=== PATIENT | male | born 1950 | race Caucasian/White ===

== ENCOUNTER 2021-06-03 16:59 | Emergency (ER) | payer MEDICARE, BC ==
[2021-06-03 18:06] VITALS: BP 149/83; PULSE 99
[2021-06-03] MEDS: Sodium Chloride 0.9% 1,000 ML IV ONE (18:24)
[2021-06-03] MEDS: diphenhydrAMINE 50 MG Cap PO ONE (18:24)
[2021-06-03] MEDS: Levofloxacin/Dextrose 5%-Water 500 MG in Levofloxacin/Dextrose 5%-Water 100 ML IV ONE (18:24)
[2021-06-03] MEDS: diphenhydrAMINE 50 MG Cap ONE (18:34)
[2021-06-03] MEDS: Ondansetron 4 MG/2 ML SDV IVPUSH ONE (18:34)
[2021-06-03] MEDS: Ondansetron 4 MG/2 ML SDV ONE (18:35)
--- NOTE | 2021-06-03 19:33 | EDM.PDOC ---
ED HPI GENERAL MEDICAL PROBLEM - General Chief Complaint: Neuro Symptoms/Deficits Stated Complaint: WEAKNESS Time Seen by Provider: 06/03/21 17:10 - History of Present Illness INITIAL COMMENTS - FREE TEXT/NARRATIVE: Pt is here with his daughter with C/O of not feeling well. He had a colonoscopy today in [place], and woke up with a tingling sensation in his throat, and he couldn't swallow. He has also been coughing. He felt sick this morning when getting up with nausea and vomiting, but it seemed to pass. His daughter says he has been getting worse this afternoon. Throat Pain Score (Numeric/FACES): 3 - Related Data Allergies Allergy/AdvReac Type Severity Reaction Status Date / Time No Known Allergies Allergy Verified 06/03/21 17:52 Home Meds: Home Meds Glucosamine [Glucosamine Sulfate] 500 mg PO DAILY 12/15/14 [History] Losartan [Cozaar] 50 mg PO BID 09/02/18 [History] Vit C/E/Zn/Coppr/Lutein/Zeaxan [Preservision Areds 2 Softgel] 2 cap PO DAILY 09/02/18 [History] atorvaSTATin [Lipitor] 10 mg PO DAILY 09/02/18 [History] hydroCHLOROthiazide [Microzide] 12.5 mg PO DAILY 09/02/18 [History] Past Medical History Other HEENT History: tonsillectomy 38 yrs ago Cardiovascular History: Reports: High Cholesterol, Hypertension Gastrointestinal History: Reports: Colon Polyp Other Gastrointestinal History: past week lower abd pain Other Musculoskeletal History: right shoulder pain - Past Surgical History Other Musculoskeletal Surgeries/Procedures:: rt knee scoped 2007 Social & Family History - Family History Family Medical History: No Pertinent Family History - Tobacco Use Tobacco Use Status *Q: Never Tobacco User ED ROS GENERAL - Review of Systems Review Of Systems: Comprehensive ROS is negative, except as noted in HPI. Respiratory: Reports: Cough GI/Abdominal: Reports: Nausea ED EXAM, GENERAL - Physical Exam Exam: See Below Throat/Mouth: Other (mucous membranes are dry) Respiratory/Chest: Other (Lungs have scattered Rhonchi.) #1 Interpretation EKG Date: 06/03/21 Time: 18:00 Course - Vital Signs Last Recorded V/S: Last Vital Signs Temp 99.9 F 06/03/21 18:04 Pulse 99 06/03/21 18:04 Resp 16 06/03/21 18:04 BP 149/83 H 06/03/21 18:04 Pulse Ox 93 L 06/03/21 18:04 - Orders/Labs/Meds Orders: Active Orders 24 hr Category Date Time Status Chest 1V Frontal [CR] Stat Exams 06/03/21 17:17 Taken Levofloxacin/Dextrose 5%-Water [Levaquin in D5W 500 MG/ Med 06/03/21 18:09 Active 100 ML] 500 mg Levofloxacin/Dextrose 5%-Water [Levaquin in D5W 500 MG/ 100 ML] 100 ml IV ONETIME EKG 12 Lead [EK] Stat Ther 06/03/21 17:16 Ordered Medication Orders Levofloxacin/Dextrose 500 mg/ (Levofloxacin/Dextrose) 200 mls @ 100 mls/hr IV ONETIME ONE Stop: 06/03/21 20:08 Last Admin: 06/03/21 18:24 Dose: 100 mls/hr Documented by: SARA Labs: Laboratory Tests 06/03/21 06/03/21 06/03/21 Range/Units 17:14 17:16 17:16 WBC 15.4 H D (4.0-11.0) K/uL RBC 5.80 (4.50-6.50) M/uL Hgb 15.5 (13.0-18.0) g/dL Hct 44.5 (40.0-54.0) % MCV 77 (76-96) fL MCH 26.7 L (27.0-32.0) pg MCHC 34.8 (31.0-35.0) g/dL RDW 14.3 (11.0-16.0) % Plt Count 260 (150-400) K/uL MPV 9.1 (6.0-10.0) fL Neut % (Auto) 92.9 H (45.0-70.0) % Lymph % (Auto) 2.7 L (20.0-40.0) % Loup % (Auto) 4.1 (3.0-10.0) % Eos % (Auto) 0.0 L (1.0-5.0) % Baso % (Auto) 0.3 (0.0-0.5) % Neut # (Auto) 14.32 H (2.00-7.50) K/uL Lymph # (Auto) 0.42 L (1.50-4.00) K/uL Loup # (Auto) 0.63 (0.20-0.80) K/uL Eos # (Auto) 0.00 L (0.04-0.40) K/uL Baso # (Auto) 0.05 (0.02-0.10) K/uL Sodium 132 L (136-145) mmol/L Potassium 3.4 L (3.5-5.1) mmol/L Chloride 97 L (98-107) mmol/L Carbon Dioxide 23.9 D (21.0-32.0) mmol/L Anion Gap 14.5 (5.0-15.0) mmol/L BUN 12 (8-26) mg/dL Creatinine 1.04 (0.70-1.30) mg/dL Est Cr Clr Drug Dosing 57.94 mL/min Estimated GFR (MDRD) > 60 (>60) MLS/MIN BUN/Creatinine Ratio 11.5 (6-25) Glucose 153 H D (74-100) mg/dL Calcium 8.8 (8.5-10.1) mg/dL Total Bilirubin 0.8 (0.0-1.0) mg/dL AST 17 (15-37) U/L ALT 20 (12-78) U/L Alkaline Phosphatase 75 (46-116) U/L Troponin I < 0.017 (0.000-0.060) ng/mL Total Protein 7.3 (6.4-8.2) g/dL Albumin 3.6 (3.4-5.0) g/dL Globulin 3.7 (2.2-4.2) g/dL Albumin/Globulin Ratio 1.0 (0.8-2.0) SARS CoV-2 RNA Rapid MELISSA Negative Meds: Medications Generic Name Dose Route Start Last Admin Trade Name Freq PRN Reason Stop Dose Admin Levofloxacin/Dextrose 500 mg/ 200 mls @ 100 mls/hr 06/03/21 18:09 06/03/21 1 8:24 Levofloxacin/Dextrose IV 06/03/21 20:08 100 mls/hr ONETIME ONE Administration Discontinued Medications Generic Name Dose Route Start Last Admin Trade Name Freq PRN Reason Stop Dose Admin Diphenhydramine HCl 50 mg 06/03/21 18:18 06/03/21 18:24 Diphenhydramine 50 Mg Cap PO 06/03/21 18:19 50 mg ONETIME ONE Administration Diphenhydramine HCl Confirm 06/03/21 18:34 06/03/21 18:34 Diphenhydramine 50 Mg Cap Administered 06/03/21 18:35 Not Given Dose 50 mg .ROUTE .STK-MED ONE Sodium Chloride 1,000 mls @ 500 mls/hr 06/03/21 17:15 06/03/21 18:24 Normal Saline IV 06/03/21 19:14 500 mls/hr .BOLUS ONE Administration Ondansetron HCl Confirm 06/03/21 18:38 06/03/21 18:35 Ondansetron 4 Mg/2 Ml Sdv Administered 06/03/21 18:39 Not Given Dose 4 mg .ROUTE .STK-MED ONE Ondansetron HCl 4 mg 06/03/21 18:33 06/03/21 18:34 Ondansetron 4 Mg/2 Ml Sdv IVPUSH 06/03/21 18:34 4 mg ONETIME ONE Administration - Radiology Interpretation Free Text/Narrative:: CXR shows an infiltrate in the left mid lobe. Reviewing his previous cxr from Aug shows a similar finding. Labs show an elevated WBC. He was given N.S. 1 liter, Levaquin, Zofran, and Benadryl. He is doing much netter after the tx's. He will be sent home with Abx, and orders to rest for 1 day, then increase activity as tolerated. I will keep him on Levaquin, and he should follow up in the clinic in 1 week, sooner prn. Departure - Departure Time of Disposition: 19:55 Disposition: Home, Self-Care 01 Condition: Good Clinical Impression: Dehydration Pneumonia Qualifiers: Pneumonia type: due to unspecified organism Laterality: left Lung location: unspecified part of lung Qualified Code(s): J18.9 - Pneumonia, unspecified organism - Discharge Information *PRESCRIPTION DRUG MONITORING PROGRAM REVIEWED*: Yes *COPY OF PRESCRIPTION DRUG MONITORING REPORT IN PATIENT STORM: No Referrals: PCP,None [Primary Care Provider] - Additional Instructions: Home with family tonight. Take meds as directed. Rest for 1 day, then increase activity as tolerated. Follow up in the clinic in 1 week, sooner as needed. Sepsis Event Note (ED) - Evaluation Sepsis Screening Result: No Definite Risk - Focused Exam Vital Signs: Vital Signs Temp Pulse Resp BP Pulse Ox 06/03/21 18:04 99.9 F 99 16 149/83 H 93 L - My Orders Last 24 Hours: My Active Orders 06/03/21 17:16 EKG 12 Lead [EK] Stat 06/03/21 17:17 Chest 1V Frontal [CR] Stat 06/03/21 18:09 Levofloxacin/Dextrose 5%-Water [Levaquin in D5W 500 MG/100 ML] 500 mg Levofloxacin/Dextrose 5%-Water [Levaquin in D5W 500 MG/100 ML] 100 ml IV ONETIME - Assessment/Plan Last 24 Hours: My Active Orders 06/03/21 17:16 EKG 12 Lead [EK] Stat 06/03/21 17:17 Chest 1V Frontal [CR] Stat 06/03/21 18:09 Levofloxacin/Dextrose 5%-Water [Levaquin in D5W 500 MG/100 ML] 500 mg Levofloxacin/Dextrose 5%-Water [Levaquin in D5W 500 MG/100 ML] 100 ml IV ONETIME
--- NOTE | 2021-06-04 12:42 | CR ---
DATE OF SERVICE: 06/03/2021 CLINICAL DATA: Cough. PORTABLE CHEST: Comparison is made to a prior exam dated 11/11/2018. The patient has taken a very poor inspiration. The heart size is normal. There are poorly defined infiltrates in the left mid lung suspicious for pneumonia. There are atelectatic changes in the right lung base with mild eventration of the right hemidiaphragm. No pneumothorax. No pleural effusions. No other significant findings. [id number] [facility]
== END 2021-06-03 19:52 | disposition home or self-care (01) ==
LOC: LB.ED 16:59
DX: J18.9 Pneumonia, unspecified organism (principal); E86.0 Dehydration; E78.00 Pure hypercholesterolemia, unspecified; I10 Essential (primary) hypertension; Z79.899 Other long term (current) drug therapy; Z20.822 Contact with and (suspected) exposure to COVID-19
CPT/HCPCS: 36415; 71045; 80053; 84484; 85025; 93005; 96365; 96366; 96375; 99285-25; A9270-GY; J1956; J2405; J7030; U0002

== ENCOUNTER 2024-01-11 13:22 | Emergency (ER) | payer MEDICARE, BC ==
[2024-01-11] MEDS ORDERED: Sodium Chloride 0.9% 10 ML Syringe FLUSH PRN (13:40)
[2024-01-11 13:59] LABS: BASOPHILS ABSOLUTE AUTO 0.11 K/uL (0.02-0.10); BASOPHILS PERCENT AUTO 1.3 % (0.0-0.5); EOSINOPHILS ABSOLUTE AUTO 0.13 K/uL (0.04-0.40); EOSINOPHILS PERCENT AUTO 1.6 % (1.0-5.0); HEMATOCRIT 48.5 % (40.0-54.0); HEMOGLOBIN 16.9 g/dL (13.0-18.0); LYMPHOCYTES ABSOLUTE AUTO 2.38 K/uL (1.50-4.00); LYMPHOCYTES PERCENT AUTO 28.7 % (20.0-40.0); MEAN CORPUSCULAR HEMOGLOBIN 28.1 pg (27.0-32.0); MEAN CORPUSCULAR HGB CONC 34.8 g/dL (31.0-35.0); MEAN CORPUSCULAR VOLUME 81 fL (76-96); MEAN PLATELET VOLUME 9.7 fL (6.0-10.0); MONOCYTES ABSOLUTE AUTO 0.93 K/uL (0.20-0.80); MONOCYTES PERCENT AUTO 11.2 % (3.0-10.0); NEUTROPHILS ABSOLUTE AUTO 4.73 K/uL (2.00-7.50); NEUTROPHILS PERCENT AUTO 57.2 % (45.0-70.0); PLATELET COUNT,PLT 262 K/uL (150-400); RED BLOOD CELL COUNT 6.01 M/uL (4.50-6.50); RED CELL DISTRIBUTION WIDTH 13.3 % (11.0-16.0); WHITE BLOOD CELL COUNT,WBC 8.3 K/uL (4.0-11.0)
[2024-01-11 14:04] LABS: APPEARANCE,URINE CLEAR (CLEAR); BILIRUBIN,URINE NEGATIVE (NEGATIVE); COLOR,URINE YELLOW; GLUCOSE,URINE NEGATIVE (NEGATIVE); KETONES,URINE NEGATIVE (NEGATIVE); LEUKOCYTE ESTERASE,URINE NEGATIVE (NEGATIVE); NITRITE,URINE NEGATIVE (NEGATIVE); OCCULT BLOOD,URINE NEGATIVE (NEGATIVE); PROTEIN,URINE NEGATIVE (NEGATIVE); UROBILINOGEN,URINE 0.2 E.U./dL (0.2-1.0)
[2024-01-11 14:18] LABS: ALANINE AMINOTRANSFERASE,ALT 29 U/L (12-78); ALBUMIN 3.9 g/dL (3.4-5.0); ALKALINE PHOSPHATASE 70 U/L (46-116); ANION GAP 9.8 mmol/L (5.0-15.0); ASPARTATE AMNIOTRANSFERASE,AST 22 U/L (15-37); BILIRUBIN TOTAL 0.4 mg/dL (0.0-1.0); BLOOD UREA NITROGEN,BUN 9 mg/dL (8-26); BUN/CREATININE RATIO 8.6 (6-25); CALCIUM 8.7 mg/dL (8.5-10.1); CARBON DIOXIDE,CO2 29.2 mmol/L (21.0-32.0); CHLORIDE,CL 101 mmol/L (98-107); CREATININE 1.05 mg/dL (0.70-1.30); ESTIMATED GFR 74 mL/min (>60); GLUCOSE RANDOM 96 mg/dL (74-100); PROTEIN TOTAL,TP 7.7 g/dL (6.4-8.2); SODIUM,NA 136 mmol/L (136-145)
[2024-01-11 14:26] LABS: C-REACTIVE PROTEIN < 5.0 mg/L (<5.0)
[2024-01-11] MEDS: Sodium Chloride 0.9% 50 ML SDV FLUSH ONE (14:46)
[2024-01-11] MEDS: Iopamidol 612 MG/ML 100 ML Bottle IV SCH (14:46)
[2024-01-11 15:50] VITALS: BP 144/85; PULSE 58
== END 2024-01-11 16:00 | disposition home or self-care (01) ==
LOC: LB.ED 13:22
DX: K57.32 Diverticulitis of large intestine without perforation or abscess without bleeding (principal); R10.30 Lower abdominal pain, unspecified; E78.00 Pure hypercholesterolemia, unspecified; I10 Essential (primary) hypertension; Z79.899 Other long term (current) drug therapy
CPT/HCPCS: 36415; 74177; 80053; 81003; 85025; 86140; 99284; J3490; Q9967

== ENCOUNTER 2024-06-22 18:50 | Emergency (ER) | payer MEDICARE, BC ==
[2024-06-22] MEDS ORDERED: Sodium Chloride 0.9% 10 ML Syringe FLUSH PRN (19:33)
[2024-06-22] MEDS: Labetalol 100 MG/20 ML MDV IVPUSH ONE ×2 (19:55→20:45)
[2024-06-22] MEDS: Aspirin 81 MG Tab.Chew PO ONE (19:55)
[2024-06-22] MEDS: Labetalol 100 MG/20 ML MDV ONE (20:05)
[2024-06-22 20:06] LABS: HEMATOCRIT 44.6 % (40.0-54.0); HEMOGLOBIN 15.6 g/dL (13.0-18.0); MEAN CORPUSCULAR HEMOGLOBIN 28.5 pg (27.0-32.0); MEAN PLATELET VOLUME 10.2 fL (6.0-10.0); RED BLOOD CELL COUNT 5.47 M/uL (4.50-6.50); RED CELL DISTRIBUTION WIDTH 13.6 % (11.0-16.0); WHITE BLOOD CELL COUNT,WBC 7.9 K/uL (4.0-11.0)
[2024-06-22 20:24] LABS: CALCIUM 8.9 mg/dL (8.5-10.1); CARBON DIOXIDE,CO2 29.6 mmol/L (21.0-32.0); CREATININE 1.09 mg/dL (0.70-1.30); EST CRCL DRUG DOSING (CG) 52.84 mL/min; MAGNESIUM 1.9 mg/dL (1.8-2.4); PHOSPHORUS 3.1 mg/dL (2.5-4.9); POTASSIUM,K 3.6 mmol/L (3.5-5.1); TROPONIN I HIGH SENSITIVITY 8.9 pg/ml (<=60.4)
[2024-06-22] MEDS: hydrALAZINE 20 MG/ML SDV IVPUSH ONE (21:57)
[2024-06-22] MEDS: hydrALAZINE 20 MG/ML SDV ONE (22:54)
[2024-06-22 23:42] VITALS: BP 124/65; PULSE 73
== END 2024-06-22 23:30 | disposition home or self-care (01) ==
LOC: LB.ED 18:50
DX: I11.9 Hypertensive heart disease without heart failure (principal); E78.00 Pure hypercholesterolemia, unspecified; E66.9 Obesity, unspecified; Z79.899 Other long term (current) drug therapy
CPT/HCPCS: 36415; 80048; 83735; 84100; 84484; 85027; 85379; 93005; 96374; 96375; 96376; 99285; A9270; J0360; J1921; 93010; 99284

== ENCOUNTER 2024-06-24 07:55 | Emergency (ER) | payer MEDICARE, BC ==
[2024-06-24 18:05] VITALS: BP 149/74; PULSE 58
== END 2024-06-24 10:05 | disposition home or self-care (01) ==
LOC: LB.ED 07:55
DX: I10 Essential (primary) hypertension (principal); E66.9 Obesity, unspecified; Z68.34 Body mass index [BMI] 34.0-34.9, adult
CPT/HCPCS: 93005; 93010; 99283; 99284

== ENCOUNTER 2024-07-11 19:55 | Emergency (ER) | payer MEDICARE, BC ==
[2024-07-11 20:20] VITALS: PULSE 64
[2024-07-11 20:44] LABS: BASOPHILS ABSOLUTE AUTO 0.08 K/uL (0.02-0.10); BASOPHILS PERCENT AUTO 0.9 % (0.0-0.5); EOSINOPHILS ABSOLUTE AUTO 0.16 K/uL (0.04-0.40); EOSINOPHILS PERCENT AUTO 1.8 % (1.0-5.0); HEMATOCRIT 45.4 % (40.0-54.0); HEMOGLOBIN 15.7 g/dL (13.0-18.0); LYMPHOCYTES ABSOLUTE AUTO 2.73 K/uL (1.50-4.00); LYMPHOCYTES PERCENT AUTO 30.6 % (20.0-40.0); MEAN CORPUSCULAR HEMOGLOBIN 28.3 pg (27.0-32.0); MEAN CORPUSCULAR HGB CONC 34.6 g/dL (31.0-35.0); MEAN CORPUSCULAR VOLUME 82 fL (76-96); MEAN PLATELET VOLUME 10.1 fL (6.0-10.0); MONOCYTES ABSOLUTE AUTO 1.04 K/uL (0.20-0.80); MONOCYTES PERCENT AUTO 11.6 % (3.0-10.0); NEUTROPHILS ABSOLUTE AUTO 4.92 K/uL (2.00-7.50); NEUTROPHILS PERCENT AUTO 55.1 % (45.0-70.0); PLATELET COUNT,PLT 252 K/uL (150-400); RED BLOOD CELL COUNT 5.54 M/uL (4.50-6.50); RED CELL DISTRIBUTION WIDTH 13.5 % (11.0-16.0); WHITE BLOOD CELL COUNT,WBC 8.9 K/uL (4.0-11.0)
[2024-07-11 21:04] LABS: A/G RATIO 1.1 (0.8-2.0); ALBUMIN 3.9 g/dL (3.4-5.0); BILIRUBIN TOTAL 0.4 mg/dL (0.0-1.0); BUN/CREATININE RATIO 12.3 (6-25); CALCIUM 9.7 mg/dL (8.5-10.1); CARBON DIOXIDE,CO2 32.7 mmol/L (21.0-32.0); CREATININE 1.3 mg/dL (0.70-1.30); EST CRCL DRUG DOSING (CG) 44.31 mL/min; POTASSIUM,K 4.7 mmol/L (3.5-5.1); PROTEIN TOTAL,TP 7.3 g/dL (6.4-8.2); TROPONIN I HIGH SENSITIVITY 12.8 pg/ml (<=60.4)
[2024-07-11 21:07] VITALS: BP 135/83
== END 2024-07-11 21:18 | disposition home or self-care (01) ==
LOC: LB.ED 19:55
DX: I10 Essential (primary) hypertension (principal); E78.00 Pure hypercholesterolemia, unspecified; E66.9 Obesity, unspecified; Z79.899 Other long term (current) drug therapy; Z68.34 Body mass index [BMI] 34.0-34.9, adult
CPT/HCPCS: 36415; 80053; 83735; 84484; 85025; 93005; 99284

== ENCOUNTER 2024-09-26 21:54 | Emergency (ER) | payer MEDICARE, BC ==
[2024-09-26] MEDS: amLODIPine 2.5 MG Tab PO ONE (23:22)
[2024-09-26 23:34] VITALS: BP 163/94; PULSE 54
== END 2024-09-26 23:40 | disposition home or self-care (01) ==
LOC: LB.ED 21:54
DX: I10 Essential (primary) hypertension (principal); E78.00 Pure hypercholesterolemia, unspecified; Z86.16 Personal history of COVID-19; Z79.899 Other long term (current) drug therapy
CPT/HCPCS: 99283; A9270-GY